=== PATIENT | male | born 1990 | race Asian ===

== ENCOUNTER → 2017-07-14 | Outpatient (CLI) | payer OTHER ==
--- NOTE | 2017-07-14 15:19 | DIAGNOSTIC IMAGING REPORT ---
THORACIC SPINE 3 VIEWS ROUTINE HISTORY: Pain M54.2 Neck painM54.6 Thoracic spine [id number] COMPARISON: None. FINDINGS: There is no fracture. No subluxation. Disc spaces are preserved. IMPRESSION: No fracture or subluxation within the thoracic spine. The above report was generated using voice recognition software. It may contain grammatical, syntax or spelling errors. Electronically signed by: Nam Terry M.D. 07/14/2017 3:18 PM Dictated Date/Time: 07/14/2017 3:17 PM
--- NOTE | 2017-07-14 15:20 | DIAGNOSTIC IMAGING REPORT ---
CERVICAL SPINE 2 OR 3 VIEWS HISTORY: Pain M54.2 Neck [id number] COMPARISON: None. FINDINGS: The cervical spine is visualized from C1 through the superior endplate of T1. There is no fracture. No subluxation. Disc spaces are preserved. Prevertebral soft tissues and the atlantodens interval are intact. IMPRESSION: No fracture or subluxation within the cervical spine. The above report was generated using voice recognition software. It may contain grammatical, syntax or spelling errors. Electronically signed by: Nam Terry M.D. 07/14/2017 3:18 PM Dictated Date/Time: 07/14/2017 3:18 PM
== END | disposition home or self-care (01) ==
LOC: C.RAD1850 14:54
PROVIDERS: ATTEND Physician Assistant
DX: M54.2 Cervicalgia (principal); M54.6 Pain in thoracic spine

== ENCOUNTER → 2017-11-07 | Outpatient (CLI) | payer OTHER ==
--- NOTE | 2017-11-07 14:31 | DIAGNOSTIC IMAGING REPORT ---
CERVICAL WITHOUT CONTRAST HISTORY: 27 years-old Male M54.2 Neck painpersistent neck pain despite PT, can go down left chronic neck pain with radiation into the left upper extremity. COMPARISON: Cervical spine radiographs 07/14/2017 TECHNIQUE: Multiplanar multisequence MRI of the cervical spine was obtained without intravenous FINDINGS: The large [id number] community health program coordinator localizer images demonstrate no gross abnormality of the neck or thorax. Signal within the cervical and imaged thoracic spinal cord appears normal. Imaged posterior fossa structures are within normal limits. No cerebellar tonsillar herniation. Moderate mucosal thickening about the bilateral maxillary sinuses with associated areas of polypoid mucosal disease. Mildly prominent nonenlarged level 1 lymph nodes. No prevertebral soft tissue swelling. No acute fracture, subluxation, focal bone marrow or soft tissue edema. There is mild straightening of the normal cervical lordosis. C2-C3: Minimal disc desiccation without disc bulge, central canal or foraminal narrowing. C3-C4: Minimal disc desiccation with small left paracentral/left foraminal disc osteophyte complex, image 10 series 5 and image 5 series 8 causing minimal left lateral recess narrowing without significant central canal or foraminal stenosis. C4-C5: Minimal disc desiccation and uncovertebral spurring without disc bulge, central canal or foraminal narrowing. C5-C6: Minimal disc desiccation and uncovertebral spurring without central canal or foraminal narrowing. C6-C7: Normal appearance without central canal or foraminal narrowing. C7-T1: Normal appearance without central canal or foraminal narrowing. IMPRESSION: 1. Small left paracentral/left foraminal disc osteophyte complex at C3-C4 causes minimal left lateral recess narrowing without significant central canal or foraminal stenosis. 2. Minimal uncovertebral spurring at C4-C5 and C5-C6 with disc desiccation. No central canal or foraminal narrowing. 3. Straightening of the normal cervical lordosis may be secondary to paraspinal muscle spasm or patient positioning. 4. Paranasal sinus disease as above. The above report was generated using voice recognition software. It may contain grammatical, syntax or spelling errors. Electronically signed by: Simón Atkinson M.D. 11/07/2017 2:29 PM Dictated Date/Time: 11/07/2017 2:20 PM
== END | disposition home or self-care (01) ==
LOC: C.MRI 13:20
PROVIDERS: ATTEND Physician Assistant
DX: M54.2 Cervicalgia (principal)

== ENCOUNTER 2018-01-22 16:32 | Emergency (ER) | payer OTHER ==
[~2018-01-22] VITALS: Ht 165.1 cm; Wt 64.5 kg
[2018-01-22 16:34] VITALS: TEMP 36.5; Ht 165.1 cm; Wt 64.5 kg
--- NOTE | 2018-01-22 16:59 | EMERGENCY ROOM VISIT NOTE ---
History Report prepared by Melissa: Kita Bah Under the Supervision of: Dr. Parveen Conteh M.D. First contact with patient: 16:38 Chief Complaint: ARM PAIN Stated Complaint: PAIN,TIGHTNESS,SWELLING IN LEFT ARM History of Present Illness The patient is a 27 year old French male with a past medical history of chronic neck pain who presents to the ED with a cc of intermittent L arm swelling beginning 3 weeks ago. He notes the swelling began following a workout where he did pull-ups, and has been intermittent since that time and usually relieved by stretching. He states the swelling worsened yesterday, while moving furniture from one apartment to another. The patient reports he began experiencing L arm pain intermittently throughout the day while lifting furniture, and came back throughout the night and this morning. He notes the pain has resolved following Tylenol this morning. The patient reports he has tried stretching, ice, and heat , which did not improve his swelling. He denies CP or SOB. The patient has no history of blood clots. Source of History: patient Onset: 3 weeks ago Position: arm (left) Quality: other (swelling) Timing: intermittent Modifying Factors (Relieving): other (not relieved by stretching, ice, or heat) Note: Associated symptom: intermittent L arm pain Review of Systems See HPI for pertinent positives and negatives. A total of ten systems were reviewed and were otherwise negative. Past Medical & Surgical Medical Problems: (1) Left arm swelling (2) Neck pain, chronic Surgical Problems: (1) Hx of LASIK Family History FHx: heart disease Social History Smoking Status: Never Smoker Smokeless Tobacco Use: No Alcohol Use: occasionally (1x every 2 months) Drug Use: none Marital Status: single Housing Status: lives with friends Occupation Status: employed Current/Historical Medications Scheduled Methocarbamol (Robaxin), 500 MG PO BID Rivaroxaban (Xarelto), 1 TAB PO BID Rivaroxaban (Xarelto), 1 TAB PO QD Allergies Coded Allergies: No Known Allergies (Unverified , 01/22/18) Physical Exam Vital Signs Date Time Temp Pulse Resp B/P (MAP) Pulse Ox O2 Delivery O2 Flow Rate FiO2 01/22/18 19:51 94 18 130/89 97 01/22/18 18:52 97 16 133/84 96 01/22/18 16:54 95 16 148/93 97 Room Air 159/112 01/22/18 16:34 36.5 86 17 125/84 97 Room Air Physical Exam GENERAL: Awake, alert, well-appearing, NAD HENT: Normocephalic, atraumatic. EYES: Normal conjunctiva. Sclera non-icteric. PERRL. No anisocoria. NECK: Supple. No nuchal rigidity. FROM. RESPIRATORY: CTAB, no rhonchi, wheezing, crackles CARDIAC: RRR, no MRG ABDOMEN: Soft, NTND, BS+ MSK: No chest wall TTP, no LE edema. Fluctuance in L axilla, no palpable masses. Notable swelling to LUE from the shoulder to the hand. Good radial pulse , SILT MUR nerves. L hand slightly cooler when compared to R hand NEURO: GCS 15, CN 2-12 intact, moves all 4s on command SKIN: No rash or jaundice noted. Medical Decision & Procedures ER Provider Diagnostic Interpretation: Radiology results as stated below per my review and radiologist interpretation: L VENOUS DOPPLER UPR EXT UNIL HISTORY: Pain. Edema. LUE swelling COMPARISON STUDY: None. FINDINGS: Findings consistent with thrombosis of the left subclavian and axillary Veins. Compressibility and augmentation characteristics are incomplete. All remaining venous structures are unremarkable. IMPRESSION: Acute deep venous thrombosis left subclavian and axillary veins. The above report was generated using voice recognition software. It may contain grammatical, syntax or spelling errors. Electronically signed by: Nam Terry M.D. 01/22/2018 6:07 PM Dictated Date/Time: 01/22/2018 6:06 PM L EXTREMITY NONVASCULAR LIMITED CLINICAL HISTORY: axillary pain/swelling r/o mass/obstruction pain TECHNIQUE: Ultrasound COMPARISON STUDY: None FINDINGS: Negative study. No evidence for mass or collection. IMPRESSION: Negative study The above report was generated using voice recognition software. It may contain grammatical, syntax or spelling errors. Electronically signed by: Nam Terry M.D. 01/22/2018 6:06 PM Dictated Date/Time: 01/22/2018 6:05 PM CHEST ONE VIEW PORTABLE CLINICAL HISTORY: r/o mass, LUE swelling pain COMPARISON STUDY: No previous studies for comparison. FINDINGS: The bones soft tissues and hemidiaphragms are normal. The cardiomediastinal silhouette is normal. The lungs are clear. The pulmonary vasculature is normal. IMPRESSION: Negative chest. The above report was generated using voice recognition software. It may contain grammatical, syntax or spelling errors. Electronically signed by: Nam Terry M.D. 01/22/2018 5:19 PM Dictated Date/Time: 01/22/2018 5:18 PM Medications Administered Medications (Trade) Dose Ordered Sig/Kyle Route Start Time Stop Time Status Last Admin Dose Admin Rivaroxaban (Xarelto Tab) 15 mg ONE STAT PO 01/22/18 18:29 01/22/18 18:30 DC 01/22/18 18:52 15 MG ED Course 1644: The patient was evaluated in room A9B. A complete history and physical exam was performed. 1822: Discussed the patient's case with Dr. Robles, [facility] hospitalist. She recommends further consult. 1831: I reviewed the case with Dr. South, vascular surgery. He recommends placing the patient on blood thinners and will see him in the clinic this week. 1842: I reevaluated the patient. Discussed results and discharge instructions: he verbalized understanding and agreement. The patient is ready for discharge. Medical Decision Nursing notes reviewed. Ancillary studies and prior records reviewed. The patient is a 27 year old French male with a past medical history of chronic neck pain who presents to the ED with a cc of intermittent L arm swelling beginning 3 weeks ago. Etiologies such as DVT, musculoskeletal, infection, joint effusion, trauma, lymphedema, idiopathic, CHF, as well as others were entertained. Patient was seen and evaluated the bedside. The patient is noticed some intermittent left upper extremity swelling that has been more persistent over the last 1-2 days. The patient does not have any neuro deficits. The patient states that he thinks this may have been caused by working out after a gym session. The patient states that with stretching it would improve. The patient does have a mildly cool hand however his opposite hand is somewhat cool also. The patient has normal sensation intact. Patient is otherwise well-appearing. The patient does not appear to have any palpable masses in the axilla. The patient did have a DVT ultrasound of the upper extremity in addition to a left upper extremity nonvascular to look at the axilla. The patient also did have a chest x-ray to rule out mass. Patient's chest x-ray was cleared. The patient was noted to have a DVT of the axillary and subclavian veins. I did speak initially with the hospitalist who then stated it might be better to speak with a specialist I did speak with her vascular surgeon. There was concern that maybe there is a possibility of thoracic outlet syndrome given that the patient has been lifting weights when this occurred. No further imaging at this time. I did advise the patient on what to do in the meantime to help with the pain and discomfort. The patient was given a first dose of Xarelto as well as a prescription for initiation of Xarelto for the first month. Patient was told to follow-up with vascular surgeon. I did have assistant case manager talk to the patient order to arrange a follow- up this week. Patient was given warning signs for which to return. Patient has good distal pulses in that left upper extremities I do not believe that there is a vascular arterial problem given that the patient has swelling with a known DVT this is most likely diagnosis. I do not believe he requires CTAs of the neck or arm at this time. Also, the patient's left upper extremity blood pressure was higher than the right upper extremity. Less likely dissection. patient was told return though if he does have any weakness tingling or other issues. Patient was given strict follow-up, discharge, and return precautions. All questions were answered. Patient was deemed suitable for outpatient follow-up at this time. Patient agreed with the plan of care and was safely discharged home. Medication Reconcilliation Current Medication List: was personally reviewed by me Blood Pressure Screening Patient's blood pressure: Normal blood pressure Blood pressure disposition: Did not require urgent referral Consults Time Called: 1817 Consulting Physician: Dr. Robles, [facility] hospitalist Returned Call: 1821 Discussed the patient's case with Dr. Robles, [facility] hospitalist. She recommends further consult. Additional Consults: Time Called: 1822 Consulted Physician: Dr. South, vascular surgery Returned Call: [phone] Additional Comments: I reviewed the case with Dr. South, vascular surgery. He recommends placing the patient on blood thinners and will see him in the clinic this week. Impression Primary Impression: DVT of upper extremity (deep vein thrombosis) Additional Impressions: Arm pain Arm swelling Scribe Attestation The scribe's documentation has been prepared under my direction and personally reviewed by me in its entirety. I confirm that the note above accurately reflects all work, treatment, procedures, and medical decision making performed by me. Departure Information Dispostion Home / Self-Care Prescriptions Rivaroxaban (Xarelto) 20 Mg Tab 1 TAB PO QD for 7 Days, #7 TAB Prov: Parveen Conteh M.D. 01/22/18 Rivaroxaban (Xarelto) 15 Mg Tab 1 TAB PO BID for 21 Days, #42 TAB Please take this twice daily for the first 21 days. Thereafter you may take the 20 mg Xarelto once daily. Prov: Parveen Conteh M.D. 01/22/18 Referrals No Doctor, Assigned (PCP) Forms HOME CARE DOCUMENTATION FORM, IMPORTANT VISIT INFORMATION Patient Instructions DVT Dc, DVT Prevent, ED On license of [facility] Additional Instructions Please return to the emergency department if you have worsening or recurrent symptoms not amenable to at-home treatment. Please call for a follow-up appointment with her primary care physician. Please take your medications as prescribed. If you have other concerns and/or complaints please feel free to also call your primary care physician's office or return the ED for further evaluation, management, and treatment. You may take tylenol 650 mg every 6 hours as needed for pain/fever unless told by your physician to not take it or have liver problems. Try applying moist heat. Also apply an Roberto Carlos wrap to your left arm. Please follow-up with the vascular surgeon. Please return if you have any worsening symptoms swelling, numbness, tingling, weakness, chest pain, or shortness of breath. Take your medications as prescribed. You have been examined and treated today on an emergency basis only. This is not a substitute for, or an effort to provide, complete comprehensive medical care. It is impossible to recognize and treat all injuries or illnesses in a single emergency department visit. It is therefore important that you follow up closely with [facility], your PCP, and/or your specialist(s). Call as soon as possible for an appointment. Thank you for your time and consideration. I look forward to speaking with you again soon. Please don't hesitate to call us if you have any questions. Problem Qualifiers Primary Impression: DVT of upper extremity (deep vein thrombosis) Affected thrombotic vein of extremity: axillary Chronicity: acute Laterality: left Qualified Codes: I82.A12 - Acute embolism and thrombosis of left axillary vein Additional Impressions: Arm pain Laterality: left Qualified Codes: M79.602 - Pain in left arm
[2018-01-22] MEDS ORDERED: METH500T37 PO (17:14)
--- NOTE | 2018-01-22 17:20 | DIAGNOSTIC IMAGING REPORT ---
CHEST ONE VIEW PORTABLE CLINICAL HISTORY: r/o mass, LUE swelling pain COMPARISON STUDY: No previous studies for comparison. FINDINGS: The bones soft tissues and hemidiaphragms are normal. The cardiomediastinal silhouette is normal. The lungs are clear. The pulmonary vasculature is normal. IMPRESSION: Negative chest. The above report was generated using voice recognition software. It may contain grammatical, syntax or spelling errors. Electronically signed by: Nam Terry M.D. 01/22/2018 5:19 PM Dictated Date/Time: 01/22/2018 5:18 PM
--- NOTE | 2018-01-22 18:07 | DIAGNOSTIC IMAGING REPORT ---
L EXTREMITY NONVASCULAR LIMITED CLINICAL HISTORY: axillary pain/swelling r/o mass/obstruction pain TECHNIQUE: Ultrasound COMPARISON STUDY: None FINDINGS: Negative study. No evidence for mass or collection. IMPRESSION: Negative study The above report was generated using voice recognition software. It may contain grammatical, syntax or spelling errors. Electronically signed by: Nam Terry M.D. 01/22/2018 6:06 PM Dictated Date/Time: 01/22/2018 6:05 PM
--- NOTE | 2018-01-22 18:08 | DIAGNOSTIC IMAGING REPORT ---
L VENOUS DOPPLER UPR EXT UNIL HISTORY: Pain. Edema. LUE swelling COMPARISON STUDY: None. FINDINGS: Findings consistent with thrombosis of the left subclavian and axillary Veins. Compressibility and augmentation characteristics are incomplete. All remaining venous structures are unremarkable. IMPRESSION: Acute deep venous thrombosis left subclavian and axillary veins. The above report was generated using voice recognition software. It may contain grammatical, syntax or spelling errors. Electronically signed by: Nam Terry M.D. 01/22/2018 6:07 PM Dictated Date/Time: 01/22/2018 6:06 PM
[2018-01-22] MEDS ORDERED: RIVAROXABAN 20 MG TAB PO STA (18:29)
[2018-01-22] MEDS ORDERED: XRL15 PO (18:56)
[2018-01-22] MEDS ORDERED: XRL20 PO (18:56)
[2018-01-22 19:51] VITALS: BP 130/89; PULSE 94; O2SAT 97
== END 2018-01-22 19:53 | disposition home or self-care (01) ==
LOC: C.EDB 16:34 → C.EDA 19:53
DX: I82.A12 Acute embolism and thrombosis of left axillary vein (principal); M54.2 Cervicalgia; G89.29 Other chronic pain; Z79.899 Other long term (current) drug therapy; Z79.01 Long term (current) use of anticoagulants